=== PATIENT | male | born 1985 ===

== ENCOUNTER 2024-10-23 12:08 | Day surgery (SDC) | payer OTHER, BC ==
[~2024-10-23] VITALS: Ht 175.3 cm; Wt 108.7 kg
[~2024-10-23 12:08] MED LIST: Lactated Ringer's 1,000 ML IV ONE; propofoL 50 ML IV ONE
[2024-10-23] MEDS ORDERED: LOSA25 (12:32)
[2024-10-23] MEDS ORDERED: Lactated Ringer's 1,000 ML IV ONE (13:07)
[2024-10-23] MEDS ORDERED: propofoL 0 ML IV ONE (13:43)
[2024-10-23] MEDS ORDERED: Lidocaine HCl/Pf 1% 5 ML VIAL ONE (14:50)
== END 2024-10-23 14:45 | disposition home or self-care (01) ==
LOC: ORSCSDS 12:08
PROVIDERS: Surgery
PROC: 0DBL8ZX Excision of Transverse Colon, Via Natural or Artificial Opening Endoscopic, Diagnostic (ICD-10-PCS; principal; 2024-10-23 13:30)
DX: Z80.0 Family history of malignant neoplasm of digestive organs (principal); K63.5 Polyp of colon; I10 Essential (primary) hypertension; E78.5 Hyperlipidemia, unspecified; E66.9 Obesity, unspecified; Z68.34 Body mass index [BMI] 34.0-34.9, adult; Z79.899 Other long term (current) drug therapy
CPT/HCPCS: 82947; 88305; J2003; J2704; J7120